=== PATIENT | male | born 1970 | race Caucasian/White ===

== ENCOUNTER 2024-05-06 06:16 | Day surgery (SDC) | payer BC ==
[~2024-05-06 06:16] MED LIST: Sodium Chloride 0.9% 10 ML Syringe FLUSH PRN
[2024-05-06] MEDS ORDERED: Propofol 200 MG/20 ML SDV IV ONE (06:17)
[2024-05-06] MEDS ORDERED: Lidocaine 2% 5 ML SDV IVPUSH ONE (06:17)
[2024-05-06] MEDS: Lactated Ringers 1,000 ML IV SCH (07:29)
[2024-05-06] MEDS: Simethicone Drops 40 MG/0.6 ML 30 ML Bottle ONE (07:33)
== END 2024-05-06 09:04 | disposition home or self-care (01) ==
LOC: FB.SDS 06:16
PROVIDERS: ATTEND Surgery
DX: Z12.11 Encounter for screening for malignant neoplasm of colon (principal); D12.6 Benign neoplasm of colon, unspecified; D12.8 Benign neoplasm of rectum; K57.30 Diverticulosis of large intestine without perforation or abscess without bleeding; J45.909 Unspecified asthma, uncomplicated; Z79.899 Other long term (current) drug therapy
CPT/HCPCS: 00811; 45384; 45385; 88305; A9270; J2704; J7120